=== PATIENT | male | born 1960 | race Caucasian/White ===

== ENCOUNTER 2024-01-26 06:18 | Day surgery (SDC) | payer OTHER, SELFPAY ==
[2024-01-14 08:57] LABS: Hematocrit 48.1 % (39.0-52.0); Hemoglobin 16.6 g/dL (13.0-18.0); Mean Corp Hgb Conc. 34.5 g/dL (33.0-37.0); Mean Corpuscular Hgb 30.5 pg (27.0-31.0); Mean Corpuscular Volume 88.3 fL (80.0-94.0); Platelet Count 208 10^3/uL (130-400); Red Blood Cell Count 5.45 10^6/uL (4.70-6.10); Red Cell Dist. Width 12.2 % (11.5-14.5)
[2024-01-14 09:10] LABS: Blood Urea Nitrogen 16 mg/dl (9-20); Calcium 9.8 mg/dl (8.4-10.2); Carbon Dioxide 29 mmol/L (22-30); Chloride 101 mmol/L (98-107); Glucose 95 mg/dl (70-99); Potassium 4.2 mmol/L (3.5-5.1); Sodium 139 mmol/L (135-145); eGFR > 60.00
[2024-01-14 13:57] VITALS: BMI 27.8
[2024-01-26] VITALS (7 sets, daily range): BP systolic 125–159; BP diastolic 79–95; BMI 27.8
[2024-01-26] MEDS: TYLENOL 1000 MG PO (06:41)
[2024-01-26] MEDS: NORMOSOL-R 1000 IV (06:42)
--- NOTE | 2024-01-26 06:59 | HP.FOC2 ---
Focused History & Physical
Chief Complaint
HPI:
Chief Complaint: Right inguinal hernia
HPI / Indication for Planned Procedure: Patient is a 63 outpatient surgical mention secondary to history of intermittent discomfort of the right inguinal region with subsequent associated swelling that is reducible. Initial outpatient urologic
follow-up confirmed the presence of a right inguinal hernia prompting surgical referral. Physical examination confirmed the presence of a reducible right inguinal hernia.
Relevant Past Medical History: Other (Dyslipidemia, hypertension, former smoker)
Relevant Social History: Tobacco Use (Quit)
Relevant Family History: Negative
Relevant Past Surgical History: Positive for (Open ventral hernia repair, repair as a child)
Review of Systems
Review of Pertinent Systems: All Systems Negative
Medication
See Medication form for detailed medications: Yes
Medication List (including Herbals & OTC):
Curcumin 400 mg PO BID 01/19/24
V-Betaar-H-Cysteine 300 mg PO DAILY 01/19/24
Vitamin C 800 mg PO DAILY 01/19/24
amlodipine 10 mg tablet 10 mg PO HS 01/19/24
beta-glucan 300 mg PO BID 01/19/24
coQ10 (ubiquinol) 100 mg capsule 100 mg PO DAILY 01/19/24
magnesium glycinate 200 mg PO BID 01/19/24
resveratrol 167 mg PO DAILY 01/19/24
vitamin D3 125 mcg (5,000 unit)-vitamin K2 100 mcg capsule 1 cap PO DAILY 01/19/24
zinc 22 mg PO DAILY 01/19/24
Medications Reviewed: Yes
Allergies and Reactions
Patient has Allergies: No
Noted Allergies and Reactions:
Allergy/AdvReac Type Severity Reaction Status Date / Time
No Known Allergies Allergy Verified 01/26/24 06:35
Pertinent Physical Exam
All Other Systems: Negative
Head/Neck: Normal
Lungs: Normal
Heart: Normal
Abdomen: Normal (Reducible right inguinal hernia)
Extremities: Normal
Neurological: Normal
Diagnosis / Assessment
63-year-old male presenting for scheduled operative correction symptomatic right inguinal hernia
Plan / Procedure
Robotic assisted laparoscopic repair right inguinal hernia with mesh
Anesthesia/Sedation to be done by Anesthesia Provider: Yes
--- NOTE | 2024-01-26 07:01 | W.SUR.PREOP ---
Pre-Operative Surgical Note
-
I have examined this patient prior to the performance of the scheduled procedure.
The patient's condition is unchanged from the time of the current History and
Physical and the patient is able to undergo the scheduled procedure.
--- NOTE | 2024-01-26 08:51 | W.IMMPOSTOP ---
Addendum entered and electronically signed by Joon Fernandez MD 01/26/24 08:59:
#[id number]
Original Note:
Surgical Immed Post Op Note
-
Primary Surgeon: Jim
Assisting Surgeon: Zain RAE
Pre-op Diagnosis: RIH
Post-op Diagnosis: RIH - indirect
Procedure Performed: RAL KISHOR repair RIH with mesh; 3d max large mid wt
Anesthesia Type: GETA + 0.25% Marcaine
Specimen / Cultures: none
Estimated Blood Loss: 4mL
Complications: none immediate
Operative Findings: right indirect inguinal hernia; reduced lipoma -not excised. 3d max large mid weight mesh repair.
== END 2024-01-26 10:59 | disposition home or self-care (01) ==
LOC: SDS 06:18
PROVIDERS: ATTENDING PHYSICIAN Surgery; FAMILY PHYSICIAN Nurse Practitioner Family
DX: K40.90 Unilateral inguinal hernia, without obstruction or gangrene, not specified as recurrent (principal)
CPT/HCPCS: 49505; 36415; 80048; 85027; 93005; C1781

== ENCOUNTER → 2024-04-02 13:55 | Outpatient (REF) | payer OTHER, SELFPAY | LOC: HWRCS 13:55 | PROVIDERS: ATTENDING PHYSICIAN Internal Medicine; FAMILY PHYSICIAN Nurse Practitioner Family | DX: I77.810 Thoracic aortic ectasia (principal) | CPT/HCPCS: 93306 ==

== ENCOUNTER → 2024-04-19 06:28 | Day surgery (SDC) | payer OTHER, SELFPAY | LOC: GI 06:28 | PROVIDERS: ATTENDING PHYSICIAN Internal Medicine Gastroenterology | DX: Z12.11 Encounter for screening for malignant neoplasm of colon (principal); D12.0 Benign neoplasm of cecum; D12.4 Benign neoplasm of descending colon; K57.30 Diverticulosis of large intestine without perforation or abscess without bleeding; D12.8 Benign neoplasm of rectum; K64.8 Other hemorrhoids; Z86.010 Personal history of colon polyps; Z98.890 Other specified postprocedural states | CPT/HCPCS: 45385; 88305 ==

== ENCOUNTER 2024-06-22 06:37 | Day surgery (SDC) | payer OTHER, SELFPAY ==
[2024-06-22 09:21] VITALS: BMI 26.9
[2024-06-22 09:22] VITALS: BMI 26.9
[2024-06-22 09:23] VITALS: BP 146/92
[2024-06-22 13:39] VITALS: BP 115/83
[2024-06-22 13:45] VITALS: BP 116/90
[2024-06-22 14:00] VITALS: BP 127/88
[2024-06-22 14:06] VITALS: BP 125/87
== END 2024-06-22 14:18 | disposition home or self-care (01) ==
LOC: GI 06:37
PROVIDERS: ATTENDING PHYSICIAN Internal Medicine Gastroenterology
DX: K64.0 First degree hemorrhoids (principal); D12.6 Benign neoplasm of colon, unspecified; K63.89 Other specified diseases of intestine; D12.0 Benign neoplasm of cecum
CPT/HCPCS: 45390; 45380; 88305

== ENCOUNTER → 2024-10-01 07:12 | Outpatient (REF) | payer OTHER, SELFPAY | LOC: RAD 07:12 | PROVIDERS: ATTENDING PHYSICIAN Nurse Practitioner Family; REFERRING PHYSICIAN Internal Medicine | DX: Z87.891 Personal history of nicotine dependence (principal) | CPT/HCPCS: 76770 ==

== ENCOUNTER 2024-11-29 06:20 | Day surgery (SDC) | payer OTHER, SELFPAY | END 2024-11-29 12:16 | disposition home or self-care (01) | LOC: GI 06:20 | PROVIDERS: ATTENDING PHYSICIAN Internal Medicine Gastroenterology | DX: Z12.11 Encounter for screening for malignant neoplasm of colon (principal); K57.30 Diverticulosis of large intestine without perforation or abscess without bleeding; Z86.0101 Personal history of adenomatous and serrated colon polyps | CPT/HCPCS: G0105 ==